=== PATIENT | female | born 1995 | race Two or more races ===

== ENCOUNTER → 2016-11-11 18:33 | Emergency (ER) | payer OTHER ==
[~2016-11-11 18:33] MED LIST: Levofloxacin 250 MG IVPREMX(*) 250 MG/50 ML BAG IVPB ONE; NS 0.9% 1000 ML* 1,000 ML IV ONE
[2016-11-11 21:29] LABS: Hematocrit 39 % (35-47); Hemoglobin 12.4 g/dl (12.0-16.0); Mean Corpuscular HGB Conc 32 g/dl (31-36); Mean Corpuscular Hemoglobin 27 pg (27-31); Mean Corpuscular Volume 84 fL (80-97); Mean Platelet Volume 8 um3 (7.4-10.4); Red Cell Distribution Width 13 % (10.5-15); White Blood Count 16.4 10^3/ul (3.5-10.8)
[2016-11-11 21:44] LABS: Albumin 4.6 g/dL (3.2-5.2); BUN/Creatinine Ratio 14.5 (8-20); Calcium 9.5 mg/dL (8.6-10.3); EGFR African American 135.6 (>60); EGFR Non-African American 105.4 (>60); Globulin 3.7 g/dL (2-4); Potassium 3.9 mmol/L (3.5-5.0); Total Bilirubin 0.3 mg/dL (0.2-1.0); Total Protein 8.3 g/dL (6.4-8.9)
[2016-11-11 21:45] LABS: UR Preg Internal Control QC Line Present; UR Preg Kit Lot# OK
[2016-11-11 21:49] LABS: Urine Bacteria 1+ (Absent); Urine Bilirubin Negative (Negative); Urine Glucose Negative (Negative); Urine Nitrite Negative (Negative)
--- NOTE | 2016-11-11 22:52 | ED ---
Hilda Lord Edward, scribed for Sam Vaughn MD on 11/11/16 at 2239 . Abdominal Pain/Female - HPI Summary HPI Summary: 21 y/o female presents to ED c/o gradual onset, constant ABD pain starting at 14 :00 today lasting a couple of hours. The pain is located in the LLQ and radiates to the L flank. Pt had a similar episode of ABD pain 2 days ago lasting a couple of hours. Took ibuprofen before she got here, which alleviated the pain. Pt has had multiple episodes of ABD pains and cramping throughout the past month. Pt was outside of the country recently. Denies N/V/D. Associated sx : takes longer to urinate, decreased appetite. - History of Current Complaint Chief Complaint: EDAbdPain Stated Complaint: ABD PAIN Time Seen by Provider: 11/11/16 22:33 Hx Obtained From: Patient Onset/Duration: Gradual Onset, Lasting Hours, Resolved Timing: Constant Severity Initially: Severe Severity Currently: Mild Pain Intensity: 2 Pain Scale Used: 0-10 Numeric Location: Discrete At: LLQ, Flank - L Radiates: Yes Radiates to: Flank - L Associated Signs and Symptoms: Positive: Urinary Symptoms - Takes longer to urinate, Decreased Appetite. Negative: Nausea, Vomiting, Diarrhea Allergies/Adverse Reactions: Allergies Allergy/AdvReac Type Severity Reaction Status Date / Time Amoxicillin Allergy Unknown Verified 11/11/16 21:14 Reaction Details Penicillin G Allergy Unknown Verified 11/11/16 21:14 Reaction Details Penicillins [PCN] Allergy Unknown Verified 11/11/16 21:14 Reaction Details PMH/Surg Hx/FS Hx/Imm Hx Previously Healthy: No Endocrine/Hematology History: Denies: Hx Diabetes Cardiovascular History: Denies: Hx Myocardial Infarction - Surgical History Surgery Procedure, Year, and Place: None Infectious Disease History: No Infectious Disease History: Denies: Traveled Outside the [place] in Last 30 Days - Family History Known Family History: Positive: Cardiac Disease - [place], Diabetes - Social History Occupation: Student Lives: Alone Alcohol Use: Occasionally Hx Substance Use: No Substance Use Type: Reports: None Hx Tobacco Use: No Smoking Status (MU): Never Smoked Tobacco Review of Systems Constitutional: Negative Eyes: Negative ENT: Negative Cardiovascular: Negative Respiratory: Negative Positive: Abdominal Pain, Other - Decreased appetite. Negative: Vomiting, Diarrhea, Nausea Positive: flank pain - L, other - Takes longer to urinate Musculoskeletal: Negative Skin: Negative Neurological: Negative Psychological: Normal All Other Systems Reviewed And Are Negative: Yes Physical Exam Triage Information Reviewed: Yes Vital Signs On Initial Exam: Initial Vitals Temp Pulse Resp BP Pulse Ox 98.6 F 95 16 117/74 100 11/11/16 18:48 11/11/16 18:48 11/11/16 18:48 11/11/16 18:48 11/11/16 18:48 Vital Signs Reviewed: Yes Appearance: Positive: Well-Appearing, No Pain Distress Skin: Positive: Warm Head/Face: Positive: Normal Head/Face Inspection ENT: Positive: Hearing grossly normal Neck: Positive: Supple Respiratory/Lung Sounds: Positive: Clear to Auscultation, Breath Sounds Present Cardiovascular: Positive: Normal Abdomen Description: Positive: Nontender, Soft Bowel Sounds: Positive: Present Musculoskeletal: Positive: Strength/ROM Intact Diagnostics - Vital Signs Vital Signs Temp Pulse Resp BP Pulse Ox 11/11/16 21:07 98.8 F 91 16 112/78 100 11/11/16 19:30 99 F 95 16 104/70 100 11/11/16 18:48 98.6 F 95 16 117/74 100 - Laboratory Lab Results: Lab Results 11/11/16 11/11/16 11/11/16 Range/Units 21:22 21:22 21:30 WBC 16.4 H (3.5-10.8) 10^3/ul RBC 4.60 (4.0-5.4) 10^6/ul Hgb 12.4 (12.0-16.0) g/dl Hct 39 (35-47) % MCV 84 (80-97) fL MCH 27 (27-31) pg MCHC 32 (31-36) g/dl RDW 13 (10.5-15) % Plt Count 456 H (150-450) 10^3/ul MPV 8 (7.4-10.4) um3 Neut % (Auto) 74.0 (38-83) % Lymph % (Auto) 16.8 L (25-47) % [place] % (Auto) 7.7 (1-9) % Eos % (Auto) 0.9 (0-6) % Baso % (Auto) 0.6 (0-2) % Absolute Neuts (auto) 12.2 H (1.5-7.7) 10^3/ul Absolute Lymphs (auto) 2.8 (1.0-4.8) 10^3/ul Absolute Monos (auto) 1.3 H (0-0.8) 10^3/ul Absolute Eos (auto) 0.1 (0-0.6) 10^3/ul Absolute Basos (auto) 0.1 (0-0.2) 10^3/ul Absolute Nucleated RBC 0.01 10^3/ul Nucleated RBC % 0 Sodium 135 (133-145) mmol/L Potassium 3.9 (3.5-5.0) mmol/L Chloride 102 (101-111) mmol/L Carbon Dioxide 27 (22-32) mmol/L Anion Gap 6 (2-11) mmol/L BUN 10 (6-24) mg/dL Creatinine 0.69 (0.51-0.95) mg/dL Est GFR ( Amer) 135.6 (>60) Est GFR (Non-Af Amer) 105.4 (>60) BUN/Creatinine Ratio 14.5 (8-20) Glucose 96 (70-100) mg/dL Calcium 9.5 (8.6-10.3) mg/dL Total Bilirubin 0.30 (0.2-1.0) mg/dL AST 15 (13-39) U/L ALT 8 (7-52) U/L Alkaline Phosphatase 53 (34-104) U/L Total Protein 8.3 (6.4-8.9) g/dL Albumin 4.6 (3.2-5.2) g/dL Globulin 3.7 (2-4) g/dL Albumin/Globulin Ratio 1.2 (1-3) Urine Color Yellow Urine Appearance Cloudy Urine pH 6.0 (5-9) Ur Specific [place] 1.005 L (1.010-1.030) Urine Protein Negative (Negative) Urine Ketones Negative (Negative) Urine Blood 3+ H (Negative) Urine Nitrate Negative (Negative) Urine Bilirubin Negative (Negative) Urine Urobilinogen Negative (Negative) Ur Leukocyte Esterase 3+ H (Negative) Urine WBC (Auto) 3+(>20/hpf) H (Absent) Urine RBC (Auto) 3+(>10/hpf) H (Absent) Ur Squamous Epith Cells Present H (Absent) Ur Transition Epith Cell Present H (Absent) Urine Bacteria 1+ H (Absent) Urine Glucose Negative (Negative) Urine Ascorbic Acid Not Reportable Urine Test Negative (Negative) Result Diagrams: 11/11/16 21:22 11/11/16 21:22 Lab Statement: Any lab studies that have been ordered have been reviewed, and results considered in the medical decision making process. - Ultrasound No standard instances Ultrasound Interpretation: No Acute Changes - NORMAL APPEARANCE OF THE L KIDNEY Ultrasound Interpretation Completed By: Radiologist Re-Evaluation - Re-Evaluation First Eval Change: Improved Abdominal Pain Fem Course/Dx - Course Course Of Treatment: 21 y/o female presents to ED c/o gradual onset, constant ABD pain starting at 14:00 today lasting a couple of hours. The pain is located in the LLQ and radiates to the L flank. Pt had a similar episode of ABD pain 2 days ago lasting a couple of hours. Took ibuprofen before she got here, which alleviated the pain. Pt has had multiple episodes of ABD pains and cramping throughout the past month. Pt was outside of the country [place]. Denies N/V/ D. Associated sx: takes longer to urinate, decreased appetite. RENAL US SHOWS NORMAL APPEARANCE OF THE L KIDNEY. Pt will be d/c home. - Diagnoses Provider Diagnoses: Pyelonephritis Discharge - Discharge Plan Condition: Stable Disposition: HOME Prescriptions: Levofloxacin TAB* [Levaquin 250 Tab*] 250 mg PO DAILY #7 tab Patient Education Materials: Kidney Infection (ED) Referrals: [facility] [Primary Care Provider] - 3 Days (Please f/u in 2-3 days) The documentation as recorded by the Hilda peres Edward accurately reflects the service I personally performed and the decisions made by , Sam Vaughn MD.
[2016-11-12 02:32] VITALS: BP 111/78
--- NOTE | 2016-11-12 08:21 | RAD ---
Indication: Left flank pain. Real-time sonography of the left kidney was performed. The left kidney measures 9.6 x 4.7 x 5.1 cm. No hydronephrosis is noted. IMPRESSION: Unremarkable left kidney.
== END | disposition home or self-care (01) ==
LOC: ED 18:33
DX: N12 Tubulo-interstitial nephritis, not specified as acute or chronic (principal); R10.32 Left lower quadrant pain; R10.84 Generalized abdominal pain
CPT/HCPCS: 36415; 76775; 80053; 81003; 81015; 81025; 85025; 87077; 87086; 87184; 87186; 99282; J1956